=== PATIENT | female | born 1955 | race Hispanic/Latino ===

== ENCOUNTER 2017-06-14 12:17 | Outpatient (CLI) | payer OTHER ==
--- NOTE | 2017-06-14 15:50 | RAD ---
LEFT HIP TWO VIEWS HISTORY: Pain. Disability. COMPARISON: None. FINDINGS: No acute fracture or malalignment. The pubic symphysis is unremarkable. There are phleboliths in t he pelvis. The soft tissues are unremarkable. IMPRESSION: 1. No acute fracture or malalignment. 2. No significant degenerative disease. POS: [facility]
--- NOTE | 2017-06-14 15:58 | RAD ---
LEFT KNEE TWO VIEWS HISTORY: Pain. Disability. COMPARISON: None. FINDINGS: Mild medial compartment osteoarthritic disease with narrowing subchondral sclerosis and flattening o f the articular surfaces. Tricompartmental large osteophytes. No significant joint effusion. No f racture. IMPRESSION: Tricompartmental osteoarthrosis, moderate to severe in the medial compartment. POS: [facility]
== END 2017-06-14 12:18 | disposition home or self-care (01) ==
LOC: NAV RAD 12:17
PROVIDERS: ATTEND Family Medicine
DX: Z02.71 Encounter for disability determination (principal)

== ENCOUNTER 2017-10-02 12:18 | Outpatient (CLI) | payer OTHER ==
--- NOTE | 2017-10-02 14:43 | RAD ---
LEFT ANKLE TWO VIEWS: History: Fracture of the left ankle many years ago. Left ankle pain. FINDINGS/IMPRESSION: No acute fracture, dislocation, or bony destruction is seen. Posterior and plantar spurs are present. POS: [facility]
--- NOTE | 2017-10-02 14:47 | RAD ---
PA AND LATERAL CHEST: Indication: History of asthma and disability. FINDINGS: Lungs are clear. Cardiomediastinal silhouette is within normal limits. No acute osseous abnormality i s evident. Examination is not appreciably changed from comparison dated 04-27-16. IMPRESSION: No acute cardiopulmonary abnormality. POS: [facility]
--- NOTE | 2017-10-02 15:07 | RAD ---
THREE VIEWS OF THE LUMBAR SPINE: INDICATION: Low back pain. COMPARISON: None. FINDINGS: There are 5 lumbar-type vertebrae. There is advanced facet osteoarthrosis at L4-5 and L5-S1. There is grade I anterolisthesis of L4 on L5 and L5 on S1. No acute fracture or subluxation is evident. IMPRESSION: Mild to moderate spondylosis of the lumbar spine with grade I anterolisthesis of L4 on L5 and L5 on S 1. POS: [facility]
== END 2017-10-02 12:19 | disposition home or self-care (01) ==
LOC: NAV RAD 12:18
PROVIDERS: ATTEND Family Medicine
DX: M54.5 Low back pain (principal); M15.9 Polyosteoarthritis, unspecified; M47.896 Other spondylosis, lumbar region; M43.17 Spondylolisthesis, lumbosacral region; M43.16 Spondylolisthesis, lumbar region; M77.52 Other enthesopathy of left foot and ankle
CPT/HCPCS: 71020; 72100